=== PATIENT | male | born 1980 | race Caucasian/White ===

== ENCOUNTER 2021-03-13 23:04 | Emergency (ER) | payer OTHER ==
[~2021-03-13] VITALS: Ht 182.9 cm; Wt 99.8 kg
[~2021-03-13 23:04] MED LIST: BISOPROLOL-HCT1 EACH PO; CLONAZEPAM2 MG GT; DEXTROAMP-AMPHE30 MG PO
--- OUTSIDE RECORDS SUMMARY | 2021-03-13 23:06 | XMS ---
PreManage Notification: HERI LO [employer] Physician Events No recent Security Events currently on file CRITERIA MET - [facility] CARE PROVIDERS There are no care providers on record at this time. Edmundo has no Care Guidelines for this patient. Nicko VISIT COUNT (12 MO.) 1 [facility] TOTAL 1 NOTE: Visits indicate total known visits. ED/C VISIT TRACKING (12 MO.) 03/13/2021 23:05 [facility] [place] TYPE: Emergency COMPLAINT: - MEDICAL CLEARANCE INPATIENT VISIT TRACKING (12 MO.) No inpatient visits to display in this time frame [email or web address]
[2021-03-13] MEDS ORDERED: AMPHETAMINE SAL30 MG PO (23:50)
[2021-03-13] MEDS ORDERED: MIRTAZAPINE45 MG PO (23:50)
[2021-03-13] MEDS ORDERED: HYDROXYZINE HCL50 MG PO (23:51)
[2021-03-13] MEDS ORDERED: BUPROPION XL300 MG PO (23:51)
== END 2021-03-14 02:22 | disposition home or self-care (01) ==
LOC: ED 23:04
DX: F32.9 Major depressive disorder, single episode, unspecified (principal); G24.01 Drug induced subacute dyskinesia; Z20.822 Contact with and (suspected) exposure to COVID-19; I10 Essential (primary) hypertension; Z88.8 Allergy status to other drugs, medicaments and biological substances; Z79.899 Other long term (current) drug therapy
CPT/HCPCS: 80053; 81001; 84443; 85025; 99284; C9803; G0480; U0003